=== PATIENT | female | born 1955 | race Caucasian/White ===

== ENCOUNTER 2016-07-20 20:23 | Emergency (ER) | payer SELFPAY ==
[2016-07-20 21:13] VITALS: BP 139/84
--- NOTE | 2016-07-20 22:10 | UC ---
Bite Injury/Animal HPI - HPI Summary HPI Summary: The patient comes in today for: 1. Dog bite: Onset: 5 hours ago. Palliative/provocative: Nothing makes it better or worse. Quality: Ache Region: Right hand. Severity: 2/10 Time: Constant. Associated symptoms: "a little bit of numb or weird." She can move her fingers OK. Form for the health department has been filled out. Patient is not uptodate regarding her immunizations and neither is the dog which is owned by the patient's client. * - History of Current Complaint Chief Complaint: UCBiteInjury Stated Complaint: RIGHT HAND-DOG BITE WC Time Seen by Provider: 07/20/16 22:04 Hx Obtained From: Patient - Allergies/Home Medications Allergies/Adverse Reactions: Allergies Allergy/AdvReac Type Severity Reaction Status Date / Time Celecoxib [From Celebrex] Allergy Severe Difficulty Verified 07/20/16 21:00 Breathing/Wheezing Latex Allergy Intermediate Rash Verified 07/20/16 21:00 Home Medications: Home Medications Acetaminophen TAB* [Tylenol TAB*] 975 mg PO Q6H PRN 07/20/16 [History Confirmed 07/20/16] Cholecalciferol TAB* [Vitamin D TAB*] 1,000 unit PO DAILY 07/20/16 [History Confirmed 07/20/16] PMH/Surg Hx/FS Hx/Imm Hx Previously Healthy: Yes Endocrine History Of: Denies: Diabetes, Thyroid Disease, Hyperthyroidism, Hypothyroidism, Dyslipidemia Cardiovascular History Of: Denies: Cardiac Disorders, Hypertension, Pacemaker/ICD, Myocardial Infarction , Congestive Heart Failure, Atrial Fibrillation, Deep Vein Thrombosis, Bleeding Disorders Respiratory History Of: Reports: Asthma - She does not take any medications for this. Denies: COPD, Bronchitis, Pneumonia, Pulmonary Embolism GI/ History Of: Denies: Gastroesophageal Reflux, Ulcer, Gastrointestinal Bleed, Gall Bladder Disease, Kidney Stones, Diverticulitis, Renal Disease, Urosepsis Neurological History Of: Denies: TIA, CVA, Dementia, Seizures, Migraine Psychological History Of: Denies: Anxiety, Depression, Bipolar Disorder, Schizophrenia, Post Traumatic Stress Disorder Cancer History Of: Denies: Lung Cancer, Colorectal Cancer, Breast Cancer, Prostate Cancer, Cervical Cancer Other History Of: Negative For: HIV, Hepatitis B, Hepatitis C, Anticoagulant Therapy - Surgical History Surgical History: Yes Surgery Procedure, Year, and Place: open mónica, x2, tubal - Family History Known Family History: Positive: Cardiac Disease, Hypertension - Social History Occupation: Employed Full-time Alcohol Use: None Substance Use Type: None Smoking Status (MU): Never Smoked Tobacco - Immunization History Most Recent Tetanus Shot: unsure Review of Systems Constitutional: Negative Skin: Negative Eyes: Negative ENT: Negative Respiratory: Negative Cardiovascular: Negative Gastrointestinal: Negative Genitourinary: Negative All Other Systems Reviewed And Are Negative: Yes Physical Exam Triage Information Reviewed: Yes Appearance: Well-Appearing, No Pain Distress, Well-Nourished Vital Signs: Initial Vital Signs Temp 96.9 F 07/20/16 21:02 Pulse 73 07/20/16 21:02 Resp 16 07/20/16 21:02 BP 139/84 07/20/16 21:02 Pulse Ox 97 07/20/16 21:02 Vital Signs Reviewed: Yes Eyes: Positive: Conjunctiva Clear. Negative: Discharge ENT: Positive: Hearing grossly normal. Negative: Pharyngeal erythema, Nasal congestion, Nasal drainage, TM bulging, TM dull, TM red, Tonsillar swelling, Tonsillar exudate Dental: Negative: Gross Decay/Caries @, Dental Fracture @ Neck: Positive: Supple, Nontender, No Lymphadenopathy. Negative: Nuchal Rigidity Respiratory: Positive: Lungs clear, No respiratory distress, No accessory muscle use. Negative: Crackles, Wheezing Cardiovascular: Positive: RRR, No Murmur Abdomen Description: Positive: Nontender, No Organomegaly, Soft. Negative: Distended, Guarding Musculoskeletal: Positive: Strength Intact, ROM Intact, No Edema Neurological: Positive: Alert, Muscle Tone Normal Psychological: Positive: Age Appropriate Behavior, Consolable Skin: Positive: Other - Small (2-3 mm) puncture wound of the back of the dorsum of the right hand. No marked ecchymosis or edema and no drainage. She has full range of motion of her fingers.. Negative: rashes, breakdown Bite Injury Course/Dx - Differential Dx/Diagnosis Provider Diagnoses: Dog bite to the back of the right hand. Discharge - Discharge Plan Condition: Stable Disposition: HOME Patient Education Materials: Animal Bite (ED) Referrals: [facility] [Primary Care Provider] - 1 Week (Please see your primary care provider in about one to two weeks to see how well you are doing. If you get worse, please be seen sooner.)
[2016-07-20] MEDS ORDERED: Amoxicillin/Clavulanate TAB* 875 MG PO ONE (22:14)
[2016-07-20] MEDS ORDERED: Tetan/Diph/Pertus SYR(Tdap)* 0.5 ML SYR(BOOSTRIX) use SYR IM ONE (22:15)
== END 2016-07-20 22:29 | disposition home or self-care (01) ==
LOC: UCCORT 20:23
DX: S61.431A Puncture wound without foreign body of right hand, initial encounter (principal); W54.0XXA Bitten by dog, initial encounter; Y93.9 Activity, unspecified; Y92.9 Unspecified place or not applicable; Z23 Encounter for immunization; J45.909 Unspecified asthma, uncomplicated; Z88.8 Allergy status to other drugs, medicaments and biological substances; Z91.040 Latex allergy status
CPT/HCPCS: 90471; 90715; 99212; A9270-GY; G0463

== ENCOUNTER 2016-07-22 20:21 | Emergency (ER) | payer SELFPAY ==
[2016-07-22 21:00] VITALS: BP 133/80
--- NOTE | 2016-07-22 21:13 | UC ---
Bite Injury/Animal HPI - HPI Summary HPI Summary: The patient comes in today for: 1. Dog bite: Onset: 4.5 hours ago. Palliative/provocative: Pressure makes the pain worse. Quality: Ache Region: Right posterior thigh. Severity: 7/10 Time: constant Associated symptoms: No drainage Previous disease: She was bitten by the same dog two days ago. She is on Augmentin and got a tetanus vaccine 2 days. * - History of Current Complaint Chief Complaint: UCBiteInjury Stated Complaint: RIGHT THIGH DOG BITE-WC Time Seen by Provider: 07/22/16 21:06 Hx Obtained From: Patient - Allergies/Home Medications Allergies/Adverse Reactions: Allergies Allergy/AdvReac Type Severity Reaction Status Date / Time Celecoxib [From Celebrex] Allergy Severe Difficulty Verified 07/22/16 20:51 Breathing/Wheezing Latex Allergy Intermediate Rash Verified 07/22/16 20:51 PMH/Surg Hx/FS Hx/Imm Hx Previously Healthy: No Endocrine History Of: Denies: Diabetes, Thyroid Disease, Hyperthyroidism, Hypothyroidism, Dyslipidemia Cardiovascular History Of: Denies: Cardiac Disorders, Hypertension, Pacemaker/ICD, Myocardial Infarction , Congestive Heart Failure, Atrial Fibrillation, Deep Vein Thrombosis, Bleeding Disorders Respiratory History Of: Reports: Asthma - She does not take any medications for this. Denies: COPD, Bronchitis, Pneumonia, Pulmonary Embolism GI/ History Of: Denies: Gastroesophageal Reflux, Ulcer, Gastrointestinal Bleed, Gall Bladder Disease, Kidney Stones, Diverticulitis, Renal Disease, Urosepsis Neurological History Of: Denies: TIA, CVA, Dementia, Seizures, Migraine Psychological History Of: Denies: Anxiety, Depression, Bipolar Disorder, Schizophrenia, Post Traumatic Stress Disorder Cancer History Of: Denies: Lung Cancer, Colorectal Cancer, Breast Cancer, Prostate Cancer, Cervical Cancer Other History Of: Negative For: HIV, Hepatitis B, Hepatitis C, Anticoagulant Therapy - Surgical History Surgical History: Yes Surgery Procedure, Year, and Place: open mónica, x2, tubal - Family History Known Family History: Positive: Cardiac Disease, Hypertension - Social History Alcohol Use: None Substance Use Type: None Smoking Status (MU): Never Smoked Tobacco - Immunization History Most Recent Tetanus Shot: 07/20/16 Review of Systems Constitutional: Negative Skin: Rash - Dog bite of right hand improved. Eyes: Negative ENT: Negative Respiratory: Negative Cardiovascular: Negative Gastrointestinal: Negative Genitourinary: Negative All Other Systems Reviewed And Are Negative: Yes Physical Exam Triage Information Reviewed: Yes Appearance: Well-Appearing, No Pain Distress, Well-Nourished Vital Signs: Initial Vital Signs Temp 97.2 F 07/22/16 20:52 Pulse 77 07/22/16 20:52 Resp 16 07/22/16 20:52 BP 133/80 07/22/16 20:52 Pulse Ox 97 07/22/16 20:52 Vital Signs Reviewed: Yes Eyes: Positive: Conjunctiva Clear. Negative: Discharge ENT: Positive: Hearing grossly normal. Negative: Pharyngeal erythema, Nasal congestion, Nasal drainage, TM bulging, TM dull, TM red, Tonsillar swelling, Tonsillar exudate Dental: Negative: Gross Decay/Caries @, Dental Fracture @ Neck: Positive: Supple, Nontender, No Lymphadenopathy. Negative: Nuchal Rigidity Respiratory: Positive: Chest non-tender, Lungs clear, No respiratory distress, No accessory muscle use. Negative: Crackles, Wheezing Cardiovascular: Positive: RRR, No Murmur Abdomen Description: Positive: Nontender, No Organomegaly, Soft. Negative: Distended, Guarding Bowel Sounds: Positive: Present Musculoskeletal: Positive: Strength Intact, ROM Intact, Other: Neurological: Positive: Alert, Muscle Tone Normal Psychological: Positive: Age Appropriate Behavior, Consolable Skin: Positive: Other - The patient has a small (3-4 mm) puncture wound of the posterior right thigh with some ecchymosis. There is no active bleeding. It is tender. Bite Injury Course/Dx - Course Course Of Treatment: Tylenol given for headache. - Differential Dx/Diagnosis Provider Diagnoses: Dog bite to the right posterior thigh. Discharge - Discharge Plan Condition: Stable Disposition: HOME Patient Education Materials: Animal Bite (ED) Forms: *Work Release Referrals: [facility] [Primary Care Provider] - Additional Instructions: Continue your antibiotic given to you two days ago. Take [id number] pain medication as needed for pain.
[2016-07-22] MEDS ORDERED: Acetaminophen TAB* 325 MG PO ONE (21:18)
== END 2016-07-22 21:43 | disposition home or self-care (01) ==
LOC: UCCORT 20:21
DX: S71.131A Puncture wound without foreign body, right thigh, initial encounter (principal); W54.0XXA Bitten by dog, initial encounter; Y93.9 Activity, unspecified; Y92.9 Unspecified place or not applicable; J45.909 Unspecified asthma, uncomplicated; Z88.8 Allergy status to other drugs, medicaments and biological substances; Z91.040 Latex allergy status
CPT/HCPCS: 99212; A9270-GY; G0463

== ENCOUNTER 2017-05-16 13:05 | Emergency (ER) | payer SELFPAY ==
[2017-05-16 13:32] VITALS: BP 135/90
--- NOTE | 2017-05-16 14:11 | UC ---
Lower Extremity/Ankle HPI - HPI Summary HPI Summary: Pt reports that fell from standing on 05/12/17 and continues to have right foot pain when she dorsiflexs foot. Pt is able to bear weight, no swelling, or bruising. - History of Current Complaint Chief Complaint: UCLowerExtremity Stated Complaint: RIGHT LEG/FOOT INJURY (WC) Time Seen by Provider: 05/16/17 13:53 Hx Obtained From: Patient ?: No Onset/Duration: Gradual Onset, Lasting Days, Still Present Severity Initially: Mild Severity Currently: Mild Pain Intensity: 5 Aggravating Factor(s): Ambulation Alleviating Factor(s): Rest, Elevation, Ice Able to Bear Weight: Yes - Risk Factors Gout Risk Factors: Age Over 40, Obesity DVT Risk Factors: Negative Septic Arthritis Risk Factor: Negative - Allergies/Home Medications Allergies/Adverse Reactions: Allergies Allergy/AdvReac Type Severity Reaction Status Date / Time MS Celecoxib [From Celebrex] Allergy Severe Difficulty Verified 05/16/17 13:24 Breathing/Wheezing MS Latex [Latex] Allergy Intermediate Rash Verified 05/16/17 13:24 PMH/Surg Hx/FS Hx/Imm Hx Previously Healthy: Yes Other History Of: Negative For: HIV, Hepatitis B, Hepatitis C, Anticoagulant Therapy - Surgical History Surgical History: Yes Surgery Procedure, Year, and Place: open mónica, x2, tubal - Family History Known Family History: Positive: Cardiac Disease, Hypertension - Social History Occupation: Employed Full-time Lives: With Family Alcohol Use: None Substance Use Type: None Smoking Status (MU): Never Smoked Tobacco Have You Smoked in the Last Year: No - Immunization History Most Recent Tetanus Shot: 07/20/16 Review of Systems Constitutional: Negative Skin: Negative Eyes: Negative ENT: Negative Respiratory: Negative Cardiovascular: Negative Gastrointestinal: Negative Genitourinary: Negative Motor: Negative Neurovascular: Negative Musculoskeletal: Arthralgia, Myalgia Neurological: Negative Psychological: Negative Is Patient Immunocompromised?: No All Other Systems Reviewed And Are Negative: Yes Physical Exam Triage Information Reviewed: Yes Appearance: Well-Appearing Vital Signs: Initial Vital Signs Temp 98.0 F 05/16/17 13:25 Pulse 89 05/16/17 13:25 Resp 18 05/16/17 13:25 BP 135/90 05/16/17 13:25 Pulse Ox 97 05/16/17 13:25 Vital Signs Reviewed: Yes Eye Exam: Normal ENT Exam: Normal Dental Exam: Normal Neck exam: Normal Respiratory Exam: Normal Cardiovascular Exam: Normal Musculoskeletal Exam: Other Musculoskeletal: Positive: Strength Intact, ROM Intact, Other: - pain top of right foot that radiates up righ tankle when pt dorsiflexes right foot. Neurological Exam: Normal Psychological Exam: Normal Skin Exam: Normal Lower Extremity Course/Dx - Differential Dx/Diagnosis Differential Diagnosis/HQI/PQRI: Sprain, Strain, Tendonitis Provider Diagnoses: right foot strain Discharge - Discharge Plan Condition: Stable Disposition: HOME Patient Education Materials: Arthralgia (ED) Referrals: Clyde Pace MD [Medical Doctor] - [facility] [Primary Care Provider] -
== END 2017-05-16 14:14 | disposition home or self-care (01) ==
LOC: UCCORT 13:05
DX: S93.601A Unspecified sprain of right foot, initial encounter (principal); W19.XXXA Unspecified fall, initial encounter; Y93.9 Activity, unspecified; Y92.9 Unspecified place or not applicable; Z88.8 Allergy status to other drugs, medicaments and biological substances; Z91.040 Latex allergy status
CPT/HCPCS: 99212; G0463